=== PATIENT | male | born 1940 | race Caucasian/White ===

== ENCOUNTER → 2017-08-24 | Outpatient (CLI) | payer MEDICARE, OTHER ==
[2017-08-24 11:26] LABS: BUN 19 mg/dL (7-18)
[2017-08-24 11:28] LABS: GFR (ESTIMATED) 65 ML/MIN (>60)
== END ==
LOC: LAB 08:45
PROVIDERS: Physician Assistant
DX: I25.10 Atherosclerotic heart disease of native coronary artery without angina pectoris (principal); E78.5 Hyperlipidemia, unspecified

== ENCOUNTER → 2017-09-01 | Outpatient (CLI) | payer MEDICARE, OTHER ==
[~2017-09-01] MED LIST: HYDROCHLOROTHIA25 M1 PO; HYDROCODONE1 TABLET; INDERAL LA160 MG PO; MOTRIN 600MG.600 MG PO; NAPROSYN 500MG500 MG PO; PRAVACHOL40 M1 PO; PRIMIDONE250 MG PO; VENTOLIN H0.09 MG/AC IH
--- NOTE | 2017-09-01 10:46 | RADIOLOGY REPORT PS360 ---
CHEST(2 VIEWS-NOT PORTABLE) COMPARISON: PA and lateral chest 05/25/2017 HISTORY: Weight loss, smoking history TECHNIQUE: The a and lateral chest FINDINGS: Mild emphysematous changes noted. There is a somewhat ill-defined opacity in right perihilar region likely represent a pneumonic infiltrate extending to the right lower lobe. The right upper lung field and left lung field are clear. There is mild aortic tortuosity no cardiomegaly. There is mild dextroscoliotic curvature of the lower thoracic spine. IMPRESSION: Probable right perihilar right lower lobe pneumonia, suggest follow-up films to assess clearing and if there is not significant improvement than CT scan chest will be helpful for additional evaluation
== END ==
LOC: RAD 09:35
DX: Z87.891 Personal history of nicotine dependence (principal); R63.4 Abnormal weight loss

== ENCOUNTER → 2017-09-10 | Outpatient (CLI) | payer MEDICARE, OTHER ==
--- NOTE | 2017-09-10 10:57 | RADIOLOGY REPORT PS360 ---
CHEST(2 VIEWS-NOT PORTABLE) HISTORY: FU PNEUMONIA RT LOBE ORDERING PHYSICIAN: Herman Woods MD PATIENT AGE: 77 years COMPARISON: 09/01/2017 FINDINGS: There remains increased density in the right perihilar region which is only slightly improved. This could be related to residual infiltrate/pneumonia or even perihilar mass. Continued follow-up recommended. If this does not resolve then CT with contrast may be needed for further evaluation. Obstructive chronic bronchitis. Unremarkable heart size. Tortuous aorta. IMPRESSION: Persistent but slightly improved opacification in the right perihilar region. May be due to residual pneumonia or perihilar mass. Recommend follow until clear. Chest CT with contrast may be of further value.
== END ==
LOC: RAD 10:01
DX: J13 Pneumonia due to Streptococcus pneumoniae (principal)

== ENCOUNTER → 2017-09-11 | Outpatient (CLI) | payer MEDICARE, OTHER ==
[2017-09-11 13:11] LABS: BUN 14 mg/dL (7-18)
[2017-09-11 13:13] LABS: GFR (ESTIMATED) 81 ML/MIN (>60)
== END ==
LOC: LAB 12:51
PROVIDERS: Family Medicine
DX: J13 Pneumonia due to Streptococcus pneumoniae (principal); R05 Cough; Z87.891 Personal history of nicotine dependence

== ENCOUNTER → 2017-09-14 | Outpatient (CLI) | payer MEDICARE, OTHER ==
--- NOTE | 2017-09-16 06:32 | RADIOLOGY REPORT PS360 ---
CT CHEST W/ CONTRAST INDICATION: PNEUMONIA OF RT LOWER LOBE,COUGH,FORMER SMOKER ORDERING PHYSICIAN: Herman Woods MD PATIENT AGE: 77 years COMPARISON: None TECHNIQUE: Axial images are obtained with contrast. Sagittal and coronal reformatted images are reviewed as well. FINDINGS: There is mild dilatation of the ascending aorta measuring up to 4.3 cm in maximum AP dimension. No evidence of dissection. Atherosclerotic calcification involves the aorta. Diffuse coronary artery calcifications are present. Normal heart size. There is minimal thickening of the pericardium anteriorly. No mediastinal or hilar mass or adenopathy is evident. There are diffuse centrilobular emphysematous changes. There is a peripheral spiculated mass in the right lower lobe posteriorly measuring 3.7 x 2.3 cm. The margins are slightly spiculated. This is noncalcified with some central decreased attenuation with some mild atelectatic changes along the peripheral aspect of this lesion. This is not causing any overlying rib destruction. Mild atelectatic or fibrotic changes present left lung base. No acute bony anomalies. Upper abdominal images show a large left renal cystic lesion measuring 7 x 6 cm. There is an isodense exophytic lesion projecting off the lateral aspect of the right kidney and 14 mm. IMPRESSION: 1. Suspicious 3.7 x 2.3 cm mass in the right lower lobe posteriorly. Neoplasm is considered. Differential diagnosis would include an inflammatory or infectious process. Rounded atelectasis is felt to be less likely based on the appearance. 2. Centrilobular emphysematous changes. 3. Diffuse coronary artery disease with mild dilatation of the ascending aorta
== END ==
LOC: RAD 13:37
DX: R05 Cough (principal); J13 Pneumonia due to Streptococcus pneumoniae; Z87.891 Personal history of nicotine dependence
CPT/HCPCS: Q9967

== ENCOUNTER 2017-10-01 10:26 | Day surgery (SDC) | payer MEDICARE, OTHER ==
[2017-10-01 12:32] LABS: LYMPH # 1.8 K/mm3 (0.7-4.5); LYMPH % 27.9 % (10-50)
[2017-10-01 12:41] LABS: HEMOGLOBIN 14.3 g/dL (14.1-18.0)
--- NOTE | 2017-10-01 15:38 | RADIOLOGY REPORT PS360 ---
CHEST(2 VIEWS-NOT PORTABLE) HISTORY: Evaluate for pneumothorax status post lung biopsy EXPIRATION ..PA AND LAT ORDERING PHYSICIAN: Herman Woods MD PATIENT AGE: 77 years COMPARISON: 09/10/2017 FINDINGS: COPD with prominent interstitium. Right infrahilar density once again noted more prominent on the CT scan. No evidence of pneumothorax. IMPRESSION: 1. No evidence of pneumothorax. 2. COPD with right infrahilar consolidation/mass may be somewhat less apparent but with different technique.
--- NOTE | 2017-10-01 16:47 | RADIOLOGY REPORT PS360 ---
CHEST(2 VIEWS-NOT PORTABLE) HISTORY: Follow-up lung biopsy EXPIRATORY- POST FINE NEEDLE ASPIRATION X4 R LUNG LOWER LB ORDERING PHYSICIAN: Herman Woods MD PATIENT AGE: 77 years COMPARISON: Same day FINDINGS: No evidence of pneumothorax. No change in the opacity in the right infrahilar region. COPD with atelectatic changes are noted in the left lower lobe. IMPRESSION: No evidence of pneumothorax status post lung biopsy. No change right infrahilar opacity
--- NOTE | 2017-11-12 11:03 | RADIOLOGY REPORT PS360 ---
CT BIOPSY HISTORY: Right lung mass CT GUIDED BIOPSY OF RIGHT LUNG ORDERING PHYSICIAN: Herman Woods MD PATIENT AGE: 77 years COMPARISON: None TECHNIQUE: Following obtaining informed consent, using aseptic technique and local anesthesia with buffered lidocaine, fine-needle aspiration was performed of the right lower lobe nodule of interest using CT guidance. 4 passes were made into the nodule with a 25-gauge needle. Specimen was given to cytology. Dr. Orozco present during the exam and confirmed tissue within the specimen. The patient tolerated the procedure well without evidence of immediate complications and left the radiology suite in stable condition. Postbiopsy images show no evidence of pneumothorax. CYTOLOGY:Atypical large cells, favor reactive with a background of acute inflammation and necrotic debris IMPRESSION: Uneventful CT-guided fine-needle aspiration of right lower lobe pleural-based mass. Cytology ministration atypical cells avor reactive with a background of acute inflammation and necrotic debris. Cannot rule out the possibility of malignancy although the nodule may have been slightly smaller when compared to the previous CT scan of 09/14/2017. Suggest CT follow-up in December 15, 2017 to confirm further resolution or stability of the nodule.
== END 2017-10-04 14:03 ==
LOC: SDC 10:26 → RAD 10:26 → SDC 10-04 14:03
PROVIDERS: Family Medicine
PROC: 0B9F3ZX Drainage of Right Lower Lung Lobe, Percutaneous Approach, Diagnostic (ICD-10-PCS; principal; 2017-10-01)
DX: R91.1 Solitary pulmonary nodule (principal); I25.10 Atherosclerotic heart disease of native coronary artery without angina pectoris; I50.9 Heart failure, unspecified

== ENCOUNTER 2017-10-12 06:58 | Day surgery (SDC) | payer MEDICARE, OTHER ==
--- NOTE | 2017-10-12 08:38 | Operative Note ---
Colonoscopy (Anthony) Procedure date: 10/12/17 Date of : 36 Procedure:Colonoscopy Colonoscopy with cold and hot snare polypectomy and submucosal injection Indications: Mr. Ash is a 77-year-old gentleman who is here for follow-up screening/ surveillance colonoscopy. His last colonoscopy was 15 years ago in [facility] and he states that a polyp was removed. He reports no abdominal pain, weight loss, change in his bowel habits or rectal bleeding. He does have a bowel movement every 3 days with some mild chronic constipation. He reports no family history of colon cancer. Performing Provider: Mady Cruz MD Referrring Provider: Herman Woods M.D./Ryann Corral M.D. Sedation: Fentanyl 100 mg IV/Versed 7 mg IV Procedure: Prior to the procedure, a history and physical exam was performed, and patient medications and allergies were reviewed. The risks and benefits of the procedure and the sedation options and risks were discussed with the patient. All questions were answered and informed consent was obtained. Patient identification and proposed procedure were verified by the physician and the nurse. The patient was placed in a left lateral decubitus position. Throughout the procedure, the patient's blood pressure, pulse, and oxygen saturations were monitored continuously. Findings: On digital rectal examination there was normal rectal tone. There were no external hemorrhoids. The prostate was 2+, mildly firm but symmetric without nodules. The colonoscope was introduced through the anal canal to the rectum and advanced to the cecum. The ileocecal valve and appendiceal orifice were identified. The scope was advanced a short distance into the ileum which appeared grossly normal. The scope was then withdrawn into the colon. There was a larger 16-17 mm polyp in the cecum that was raised using submucosal injection of cornstarch. This was removed via hot snare cautery. There were 2 additional 6 mm polyps in the ascending colon. There was a 11 mm polyp in the transverse colon removed via cold snare polypectomy. There were scattered diverticuli throughout the descending and sigmoid colon (LEFT colon). The rectum itself was normal. Upon retroflexion within the rectum there were grade 1 internal hemorrhoids. Impressions: 1. Colonic polyps 4 2. Left-sided diverticulosis 3. Grade 1 internal hemorrhoids Recommendations: Based on the size of these polyps and probable adenomatous (possibly advanced adenomas) nature, I would consider one additional surveillance colonoscopy in 2 years based upon his good health. I would encourage fiber supplementation only long-term daily maintenance basis. Complications: None EBL (ml): 0 at 0838
[2017-10-12 13:02] VITALS: BP 148/81
== END 2017-10-12 09:35 | disposition home or self-care (01) ==
LOC: SDC 06:58
PROVIDERS: Internal Medicine Gastroenterology
PROC: 0DBK8ZX Excision of Ascending Colon, Via Natural or Artificial Opening Endoscopic, Diagnostic (ICD-10-PCS; 2017-10-12)
PROC: 0DBL8ZX Excision of Transverse Colon, Via Natural or Artificial Opening Endoscopic, Diagnostic (ICD-10-PCS; 2017-10-12)
PROC: 0DBH8ZX Excision of Cecum, Via Natural or Artificial Opening Endoscopic, Diagnostic (ICD-10-PCS; 2017-10-12)
PROC: 3E0H8GC Introduction of Other Therapeutic Substance into Lower GI, Via Natural or Artificial Opening Endoscopic (ICD-10-PCS; principal; 2017-10-12 08:00)
DX: Z12.11 Encounter for screening for malignant neoplasm of colon (principal); D12.3 Benign neoplasm of transverse colon; K57.30 Diverticulosis of large intestine without perforation or abscess without bleeding; K64.0 First degree hemorrhoids; D12.0 Benign neoplasm of cecum; K63.5 Polyp of colon

== ENCOUNTER → 2017-10-22 | Outpatient (CLI) | payer MEDICARE, OTHER | LOC: LAB 10:27 | DX: R91.8 Other nonspecific abnormal finding of lung field (principal); J98.11 Atelectasis; R63.4 Abnormal weight loss ==